=== PATIENT | male | born 1965 | race Caucasian/White ===

== ENCOUNTER 2021-11-24 12:23 | Inpatient (IN) | payer OTHER, MEDICAID ==
[~2021-11-24] VITALS: Ht 152.4 cm; Wt 43.5 kg
[2021-11-24 12:23] VITALS: BP_SYST 118
[2021-11-24] MEDS ORDERED: D5/0.45 NS 1,000 ML IV ONE (12:45)
[2021-11-24] MEDS ORDERED: LORazepam 2 MG/ML VIAL IVP PRN (13:30)
[2021-11-24] MEDS ORDERED: D5/0.45 NS 1,000 ML IV SCH (13:30)
[2021-11-24 13:38] LABS: BASOPHILS % (AUTO) 0.3 % (0.0-2.0); EOSINOPHILS # (AUTO) 0.3 K/uL (0.0-0.4); EOSINOPHILS % (AUTO) 4.6 % (0.0-4.0); HEMOGLOBIN 12.8 g/dL (14.0-18.0); LYMPHOCYTES # (AUTO) 1.5 K/uL (1.0-5.5); LYMPHOCYTES % (AUTO) 25.1 % (20.5-51.5); MEAN CORPUSCULAR HEMOGLOBIN 29 pg (27-31); MEAN CORPUSCULAR HGB CONC 33 % (32-36); MEAN CORPUSCULAR VOLUME 88 fL (79.0-98.0); MONOCYTES # (AUTO) 0.4 K/uL (0.0-1.0); MONOCYTES % (AUTO) 5.9 % (1.7-9.3); NEUTROPHILS # (AUTO) 3.9 K/uL (1.8-7.7); NEUTROPHILS % (AUTO) 64.1 % (40.0-70.0); PLATELET COUNT (AUTO) 311 K/uL (130-430); RED BLOOD CELL COUNT(AUTO) 4.43 MIL/uL (4.2-6.2); RED CELL DISTRIBUTION WIDTH 15.9 % (9.0-15.0)
[2021-11-24 13:50] LABS: CREATININE 0.58 mg/dL (0.55-1.30); POTASSIUM 3.9 mmol/L (3.5-5.1)
[2021-11-24 13:56] LABS: ALBUMIN 2.7 g/dL (3.4-4.8); TOTAL BILIRUBIN 0.3 mg/dL (0.0-1.0)
[2021-11-24] MEDS ORDERED: IPRA4AER INH (14:40)
[2021-11-24] MEDS ORDERED: MIRT-91 GT (14:40)
[2021-11-24] MEDS ORDERED: KLO1 GT (14:40)
[2021-11-24] MEDS ORDERED: GEO20 GT (14:40)
[2021-11-24] MEDS ORDERED: FAMO20TA8 GT (14:40)
[2021-11-24 20:00] VITALS: BP_SYST 112
[2021-11-25 00:38] VITALS: BP_SYST 98
[2021-11-25 08:00] VITALS: BP_SYST 110
[2021-11-25] MEDS ORDERED: CEFAZOLIN 1 GM IVPB PREMIX 50 ML IV ONE (10:00)
[2021-11-25 12:00] VITALS: BP_SYST 100
[2021-11-25] MEDS ORDERED: SIMETHICONE 40 MG/0.6 ML ML ONE (15:20)
[2021-11-25 16:02] VITALS: BP_SYST 105
[2021-11-25] MEDS: MIDAZOLAM HCL 5 MG/5 ML VIAL ONE ×2 (16:32→16:34)
[2021-11-25] MEDS: MEPERIDINE 100 MG INJ. 100 MG/ML VIAL ONE ×2 (16:32→16:34)
[2021-11-25 20:00] VITALS: BP_SYST 101
[2021-11-26 02:00] VITALS: BP_SYST 108
[2021-11-26 07:01] LABS: PROTHROMBIN TIME 9.9 SECS (9.5-12.5)
[2021-11-26 07:06] LABS: ALBUMIN 2.7 g/dL (3.4-4.8); CALCIUM 9.4 mg/dL (8.4-11.0); CREATININE 0.51 mg/dL (0.55-1.30); POTASSIUM 3.9 mmol/L (3.5-5.1); TOTAL BILIRUBIN 0.4 mg/dL (0.0-1.0)
[2021-11-26 07:43] LABS: BASOPHILS # (AUTO) 0.1 K/uL (0.0-0.2); BASOPHILS % (AUTO) 0.9 % (0.0-2.0); EOSINOPHILS # (AUTO) 0.2 K/uL (0.0-0.4); EOSINOPHILS % (AUTO) 1.7 % (0.0-4.0); HEMATOCRIT 40.8 % (36-54); HEMOGLOBIN 13.3 g/dL (14.0-18.0); LYMPHOCYTES # (AUTO) 1.9 K/uL (1.0-5.5); LYMPHOCYTES % (AUTO) 16.3 % (20.5-51.5); MEAN CORPUSCULAR HEMOGLOBIN 29 pg (27-31); MEAN CORPUSCULAR HGB CONC 33 % (32-36); MEAN CORPUSCULAR VOLUME 89 fL (79.0-98.0); MONOCYTES # (AUTO) 0.6 K/uL (0.0-1.0); MONOCYTES % (AUTO) 5.5 % (1.7-9.3); NEUTROPHILS % (AUTO) 75.6 % (40.0-70.0); PLATELET COUNT (AUTO) 361 K/uL (130-430); RED BLOOD CELL COUNT(AUTO) 4.58 MIL/uL (4.2-6.2); RED CELL DISTRIBUTION WIDTH 16.2 % (9.0-15.0); WHITE BLOOD COUNT (AUTO) 11.9 K/uL (4.8-10.8)
[2021-11-26 11:38] VITALS: BP_SYST 147
[2021-11-26 12:50] VITALS: BP_SYST 106
[2021-11-27 05:08] LABS: FERRITIN 259 ng/mL (30-400)
[2021-11-27 08:06] LABS: ANTI NUCLEAR AB WITH REFLEX Negative (Negative)
== END 2021-11-26 13:10 | DRG 393 ==
LOC: SED 12:23 → SMU 13:18
PROVIDERS: ADMIT Family Medicine; ATTEND Family Medicine
PROC: 0DH63UZ Insertion of Feeding Device into Stomach, Percutaneous Approach (ICD-10-PCS; principal; 2021-11-25 16:00)
DX: K94.23 Gastrostomy malfunction (principal); E43 Unspecified severe protein-calorie malnutrition; K29.70 Gastritis, unspecified, without bleeding; R13.10 Dysphagia, unspecified; G80.9 Cerebral palsy, unspecified; Z20.822 Contact with and (suspected) exposure to COVID-19; D64.9 Anemia, unspecified; F79 Unspecified intellectual disabilities
CPT/HCPCS: 36415; 43246; 76700-TC; 80053; 80074; 82728; 85025; 85610-TC; 86038; 87081; 99285; J0690; J2175; J2250